=== PATIENT | female | born 1990 | race Caucasian/White ===

== ENCOUNTER 2023-06-30 18:08 | Inpatient (IN) ==
[2023-06-30] MEDS ORDERED: Buffered Lidocaine 1% SYRIN 1 ml INTRADERM ONE (19:06)
[2023-06-30] MEDS ORDERED: Lactated Ringers 1000 ml BAG 1,000 ML IV ONE (19:06)
[2023-06-30] MEDS ORDERED: Dinoprostone 10 MG VAG.SUPP VAGINAL ONE (19:06)
[2023-06-30] MEDS ORDERED: Lidocaine 1% VIAL 10 MG/ML 30 ML VIAL INJ PRN (19:06)
[2023-06-30] MEDS ORDERED: Promethazine INJ(RESTRICTED) 25 MG/ML 1 ml VIAL IV PRN (19:06)
[2023-06-30 21:57] LABS: Urine Benzodiazepine Screen None Detected (None Detect); Urine Cannabinoids Screen None Detected (None Detect); Urine Opiates Screen None Detected (None Detect)
[2023-07-01] MEDS ORDERED: miSOPROStol 100 mcg TAB VAGINAL ONE (10:59)
[2023-07-01] MEDS ORDERED: Oxytocin in LR 20,000 MILLI.UNIT/1,000 ML BAG IV SCH (17:25)
[2023-07-01 17:53] LABS: ABS Lymphocytes 2.3 10^3/uL (1.0-4.8); ABS Monocytes 0.5 10^3/uL (0.0-0.9); ABS Neutrophils 6.3 10^3/uL (1.5-7.6); Eosinophil % 0.5 %; Hematocrit 30.1 % (35-45); Hemoglobin 9.7 g/dL (11.5-14.3); Lymphocyte % 25.3 %; Mean Corpuscular Hemoglobin 24.4 pg (27-33); Mean Corpuscular Hgb Conc 32.3 g/dL (31-36); Mean Corpuscular Volume 75.6 fL (80-97); Mean Platelet Volume 8.9 fL (7.5-11.2); Platelet Count 262 10^3/uL (150-450); Red Blood Count 3.99 10^6/uL (3.63-4.92); Red Cell Distribution Width 16.1 % (12-17); White Blood Count 9.2 10^3/uL (3.8-11.8)
[2023-07-01] MEDS: Lactated Ringers 1000 ml BAG 1,000 ML IV SCH ×2 (19:40→22:30)
[2023-07-01] MEDS ORDERED: Morphine 10 MG/ML VIAL (1 ml) IV ONE (20:54)
[2023-07-01] MEDS ORDERED: Ondansetron 4 mg VIAL 2 MG/ML 2 ml VIAL IV ONE (20:54)
[2023-07-01] MEDS ORDERED: OBEPIDURAL (200 ML) 200 ML EPIDURAL ONE (21:46)
[2023-07-01] MEDS ORDERED: Lidocaine 1.5% EPI 1:200,000 30 ML SDV ONE (21:46)
[2023-07-01] MEDS ORDERED: Lactated Ringers 1000 ml BAG 1,000 ML IV ONE (21:54)
[2023-07-01] MEDS ORDERED: Phenylephrine 40 mcg/mL 10mL (400mcg) SYRINGE IV PUSH PRN ×2 (21:54)
[2023-07-01] MEDS ORDERED: Sodium Citrate/Citric Acid LIQ 15 ML UDC PO PRN (21:54)
[2023-07-01] MEDS ORDERED: fentaNYL 100 mcg/2 ml 50 MCG/ML VIAL ONE (21:56)
[2023-07-01] MEDS ORDERED: OBEPIDURAL (200 ML) 200 ML EPIDURAL SCH (22:00)
[2023-07-01] MEDS ORDERED: Lactated Ringers 1000 ml BAG 1,000 ML IV SCH (22:00)
[2023-07-02 00:14] LABS: Urine Appearance Clear; Urine Bilirubin Negative (Negative); Urine Blood 2+ (Negative); Urine Color Yellow; Urine Glucose Negative (Negative); Urine Ketones Negative (Negative); Urine Nitrite Negative (Negative); Urine Protein 3+(>=500 mg/dL) (Negative); Urine Specific Gravity 1.018 (1.002-1.030); Urine Urobilinogen Negative (Negative)
[2023-07-02 00:17] LABS: Urine Bacteria Absent (Absent); Urine Red Blood Cell 3+(>10/hpf) (Absent); Urine Squamous Epithelial Cell Present (Absent); Urine White Blood Cell Trace(0-5/hpf) (Absent)
[2023-07-02] MEDS ORDERED: ceFOXitin 2 GM IVPREMIX 2 GM/50 ML BAG IVPB ONE (00:55)
[2023-07-02] MEDS ORDERED: Lidocaine 2% w/ EPI 1:200,000 MPF 20 ML SDV VIAL ONE (01:05)
[2023-07-02] MEDS ORDERED: Oxytocin 10 UNITS/ML 1 ML VIAL ONE (01:05)
[2023-07-02] MEDS ORDERED: Ondansetron 4 mg VIAL 2 MG/ML 2 ml VIAL ONE (01:18)
[2023-07-02] MEDS ORDERED: Morphine PF AMP (0.5MG/ML) 5 MG/10 ML AMP ONE (01:25)
[2023-07-02] MEDS ORDERED: Acetaminophen IV 1 GM/100ML 1,000 MG/100 ML BAG IV ONE (01:45)
[2023-07-02] MEDS ORDERED: Acetaminophen IV 1 GM/100ML 1,000 MG/100 ML BAG IV PRN (01:47)
[2023-07-02] MEDS ORDERED: Ondansetron 4 mg VIAL 2 MG/ML 2 ml VIAL IV PRN (01:47)
[2023-07-02] MEDS ORDERED: Naloxone 0.4 mg VIAL 0.4 mg/ml 1 ml VIAL IV PUSH PRN (01:47)
[2023-07-02] MEDS ORDERED: Metoclopramide 5 MG/ML VIAL (10 mg) IV PRN (01:47)
[2023-07-02] MEDS ORDERED: Dibucaine 1% OINT 28.35 GM TUBE PR PRN (02:27)
[2023-07-02] MEDS ORDERED: Witch Hazel PAD JAR TOPICAL PRN (02:27)
[2023-07-02] MEDS ORDERED: RHO D Immune Globulin (HUMAN) 300 MCG = 1,500 I.U. INJ IM PRN (02:27)
[2023-07-02] MEDS ORDERED: Glycerin ADULT 2.4 gm SUPP PR PRN (02:27)
[2023-07-02] MEDS ORDERED: Lactated Ringers 1000 ml BAG 1,000 ML IV SCH (03:00)
[2023-07-02] MEDS: Oxytocin in LR 20,000 MILLI.UNIT/1,000 ML BAG IV SCH ×2 (08:05→12:22)
[2023-07-02 15:38] LABS: Hematocrit 23.8 % (35-45); Hemoglobin 7.6 g/dL (11.5-14.3)
[2023-07-03 08:41] LABS: ABS Lymphocytes 1.1 10^3/uL (1.0-4.8); ABS Monocytes 0.5 10^3/uL (0.0-0.9); ABS Neutrophils 11.6 10^3/uL (1.5-7.6); Eosinophil % 0.2 %; Hematocrit 25.4 % (35-45); Hemoglobin 8.3 g/dL (11.5-14.3); Mean Corpuscular Hemoglobin 25.1 pg (27-33); Mean Corpuscular Hgb Conc 32.5 g/dL (31-36); Mean Corpuscular Volume 77.2 fL (80-97); Platelet Count 223 10^3/uL (150-450); Red Blood Count 3.29 10^6/uL (3.63-4.92); Red Cell Distribution Width 17.2 % (12-17); White Blood Count 13.3 10^3/uL (3.8-11.8)
[2023-07-05 07:56] VITALS: BP 133/80
== END 2023-07-05 11:48 | disposition home or self-care (01) | DRG 540 ==
LOC: MCHOBOUT 18:08 → MCHOB 18:16
PROVIDERS: ADMIT Advanced Practice Midwife; ATTEND Obstetrics & Gynecology